=== PATIENT | male | born 1955 | race Caucasian/White ===

== ENCOUNTER 2021-03-20 22:13 | Inpatient (IN) | payer BC ==
[~2021-03-20] VITALS: Ht 170.2 cm; Wt 76.2 kg
[2021-03-20] MEDS ORDERED: ACETAMINOPHEN 325MG TABLET PO STA (22:43)
[2021-03-20] MEDS ORDERED: SODIUM CHLORIDE 0.9% 1,000 ML IV ONE (22:45)
[2021-03-20 23:05] LABS: EOSINOPHILS % 2.9 % (0.0-5.0); HEMATOCRIT. 36.8 % (42.0-52.0); HEMOGLOBIN. 12.6 g/dL (14.0-18.0); LYMPHOCYTES % 32.1 % (20.0-50.0); MEAN CORPUSCULAR HEMOGLOBIN 32.2 pg (28.0-32.0); MEAN CORPUSCULAR VOLUME 94.3 fL (80.0-94.0); MEAN PLATELET VOLUME 6.5 fl (7.4-10.4); MONOCYTES % 7.3 % (2.0-8.0); NEUTROPHILS % 56.7 % (40.0-76.0); PLATELET 373 x1000/uL (130-400); RED BLOOD CELL COUNT 3.91 mill/uL (4.7-6.1); RED CELL DISTRIBUTION WIDTH 13.8 % (11.6-14.6)
[2021-03-20 23:13] LABS: CHLORIDE 104 mEq/L (98-107); PROTHROMBIN TIME 10.9 sec (9.6-11.0)
[2021-03-21] MEDS ORDERED: IOHEXOL-350 100 ML BOTTLE ONE (00:53)
[2021-03-21 04:30] VITALS: BP 96/59
[2021-03-21 05:18] VITALS: BP 96/59
[2021-03-21] MEDS ORDERED: ATOR10TA MT (05:35)
[2021-03-21] MEDS ORDERED: ALPR0.5T MT (05:35)
[2021-03-21] MEDS ORDERED: LISI20TA31 MT (05:35)
[2021-03-21] MEDS ORDERED: ESCI20TA MT (05:35)
[2021-03-21] MEDS ORDERED: GABA-290 PO (05:35)
[2021-03-21] MEDS ORDERED: LISD40CA MT (05:35)
[2021-03-21 07:37] VITALS: BP 109/67
[2021-03-21 07:43] LABS: BASOPHILS % 0.6 % (0.0-2.0); EOSINOPHILS % 2.2 % (0.0-5.0); HEMATOCRIT. 34.3 % (42.0-52.0); HEMOGLOBIN. 11.8 g/dL (14.0-18.0); LYMPHOCYTES % 37.5 % (20.0-50.0); MEAN CORPUSCULAR HEMOGLOBIN 32.7 pg (28.0-32.0); MEAN CORPUSCULAR VOLUME 94.8 fL (80.0-94.0); MEAN PLATELET VOLUME 6.7 fl (7.4-10.4); MONOCYTES % 9.3 % (2.0-8.0); NEUTROPHILS % 50.4 % (40.0-76.0); PLATELET 321 x1000/uL (130-400); RED BLOOD CELL COUNT 3.62 mill/uL (4.7-6.1); RED CELL DISTRIBUTION WIDTH 14.2 % (11.6-14.6)
[2021-03-21 07:47] LABS: CHLORIDE 109 mEq/L (98-107)
[2021-03-21 07:55] LABS: HDL CHOLESTEROL 37 mg/dL (40-59)
[2021-03-21 07:56] LABS: LDL CHOLESTEROL 69 mg/dL (5-100)
[2021-03-21] MEDS: ALPRAZOLAM 0.5 MG TABLET PO SCH (08:50)
[2021-03-21] MEDS: ASPIRIN 81MG TABLET PO SCH (08:50)
[2021-03-21] MEDS: LISINOPRIL 20MG TABLET PO SCH (08:51)
[2021-03-21] MEDS: GABAPENTIN 300MG CAPSULE PO SCH (08:51)
[2021-03-21] MEDS: CITALOPRAM HYDROBROMIDE 10MG TABLET PO SCH (08:51)
[2021-03-21 11:10] VITALS: BP 118/69
[2021-03-21] MEDS ORDERED: METOPROLOL TARTRATE 25MG TABLET PO NR (11:45)
[2021-03-21] MEDS ORDERED: PNEUMOCOCCAL 23-VAL P-SAC VAC 0.5 ML IM ONE (12:00)
[2021-03-21] MEDS ORDERED: SODIUM CHLORIDE 0.45% 500 ML IV ONE (12:00)
[2021-03-21 13:49] LABS: CLARITY URINE CLEAR (CLEAR); COLOR URINE YELLOW (YELLOW); KETONES URINE NEGATIVE (NEGATIVE); LEUKOCYTE ESTERASE URINE NEGATIVE (NEGATIVE); NITRITE URINE NEGATIVE (NEGATIVE); OCCULT BLOOD URINE NEGATIVE (NEGATIVE); PROTEIN URINE NEGATIVE (NEGATIVE); SPECIFIC GRAVITY URINE 1.026 (1.005-1.030); UROBILINOGEN URINE 0.2 E.U./dL (0.2-1.0)
[2021-03-21 14:10] LABS: *AMPHETAMINES SCREEN URINE PRESUMTIVE POSITIVE (NEGATIVE)
[2021-03-21 14:11] LABS: *BARBITURATES SCREEN URINE NEGATIVE (NEGATIVE); *BENZODIAZEPINES SCREEN URINE PRESUMTIVE POSITIVE (NEGATIVE); *COCAINE SCREEN URINE NEGATIVE (NEGATIVE); CANNABINOID URINE SCREEN PRESUMTIVE POSITIVE (NEGATIVE); OPIATES URINE SCREEN NEGATIVE (NEGATIVE); PHENCYCLIDINE URINE SCREEN NEGATIVE (NEGATIVE)
[2021-03-21 14:12] LABS: METHADONE URINE SCREEN NEGATIVE (NEGATIVE)
[2021-03-21 16:00] VITALS: BP_SYST 118; BP_SYST 126; BP_SYST 151; BP_DIAS 76; BP_DIAS 86; BP_DIAS 93
[2021-03-21 20:00] VITALS: BP_SYST 114; BP_SYST 127; BP_SYST 98; BP_DIAS 63; BP_DIAS 77; BP_DIAS 78
[2021-03-21] MEDS ORDERED: ATORVASTATIN CALCIUM 10MG TABLET PO SCH (21:00)
[2021-03-22] VITALS: BP_SYST 109; BP_SYST 116; BP_SYST 96; BP_DIAS 57; BP_DIAS 68; BP_DIAS 69
[2021-03-22 04:00] VITALS: BP_SYST 115; BP_SYST 116; BP_SYST 117; BP_DIAS 72; BP_DIAS 74; BP_DIAS 76
[2021-03-22 08:00] VITALS: BP 119/72
[2021-03-22] MEDS ORDERED: METOPROLOL TARTRATE 5MG/5ML VIAL IV NR (08:00)
[2021-03-22] MEDS: ASPIRIN 81MG TABLET PO SCH (08:46)
[2021-03-22] MEDS: LISINOPRIL 20MG TABLET PO SCH (08:47)
[2021-03-22] MEDS: GABAPENTIN 300MG CAPSULE PO SCH (08:47)
[2021-03-22] MEDS: CITALOPRAM HYDROBROMIDE 10MG TABLET PO SCH (08:47)
[2021-03-22] MEDS: ALPRAZOLAM 0.5 MG TABLET PO SCH (09:14)
[2021-03-22] MEDS ORDERED: NITROGLYCERIN SPRAY/4.9GM CAN TL NR (09:30)
[2021-03-22] MEDS ORDERED: IOHEXOL-350 100 ML BOTTLE ONE (09:49)
[2021-03-22 11:45] LABS: BASOPHILS % 0.4 % (0.0-2.0); EOSINOPHILS % 0.5 % (0.0-5.0); HEMATOCRIT. 34.9 % (42.0-52.0); HEMOGLOBIN. 12.2 g/dL (14.0-18.0); LYMPHOCYTES % 15.1 % (20.0-50.0); MEAN CORPUSCULAR HEMOGLOBIN 32.8 pg (28.0-32.0); MEAN CORPUSCULAR VOLUME 93.8 fL (80.0-94.0); MEAN PLATELET VOLUME 6.5 fl (7.4-10.4); MONOCYTES % 5.4 % (2.0-8.0); NEUTROPHILS % 78.6 % (40.0-76.0); PLATELET 332 x1000/uL (130-400); RED BLOOD CELL COUNT 3.72 mill/uL (4.7-6.1); RED CELL DISTRIBUTION WIDTH 14.1 % (11.6-14.6)
[2021-03-22 11:58] LABS: CHLORIDE 107 mEq/L (98-107)
[2021-03-22 12:00] VITALS: BP 104/66
[2021-03-22] MEDS ORDERED: LIP40 PO (14:52)
[2021-03-22] MEDS ORDERED: ASPI-1160 PO (14:52)
[2021-03-22 16:00] VITALS: BP 118/70
[2021-03-22] MEDS ORDERED: ATORVASTATIN CALCIUM 10MG TABLET PO SCH (21:00)
[2021-03-22] MEDS ORDERED: ATORVASTATIN CALCIUM 40MG TABLET PO SCH (21:00)
== END 2021-03-22 16:45 | disposition home or self-care (01) | DRG 918 ==
LOC: ER 22:13 → 6WST 03-21 00:59 → ENRESERV 03-21 02:36
PROVIDERS: ADMIT Internal Medicine; ATTEND Internal Medicine
DX: T43.621A Poisoning by amphetamines, accidental (unintentional), initial encounter (principal); G90.8 Other disorders of autonomic nervous system; D64.9 Anemia, unspecified; I25.10 Atherosclerotic heart disease of native coronary artery without angina pectoris; I10 Essential (primary) hypertension; F17.210 Nicotine dependence, cigarettes, uncomplicated; J45.909 Unspecified asthma, uncomplicated; E78.5 Hyperlipidemia, unspecified; F12.90 Cannabis use, unspecified, uncomplicated; F41.9 Anxiety disorder, unspecified; Z79.899 Other long term (current) drug therapy; I25.2 Old myocardial infarction; Z95.5 Presence of coronary angioplasty implant and graft; Z79.02 Long term (current) use of antithrombotics/antiplatelets; Z71.6 Tobacco abuse counseling; Z71.51 Drug abuse counseling and surveillance of drug abuser
CPT/HCPCS: 36415; 70551; 71275; 75571; 80048; 80053; 80061; 80305; 81003; 83880; 84443; 84484; 85025; 90732; 93005; 93306; 93880; 99285; J3490; J7030; Q9967